=== PATIENT | female | born 1960 | race Caucasian/White ===

== ENCOUNTER → 2018-02-20 | Outpatient (CLI) | payer MEDICARE | END | disposition home or self-care (01) | LOC: PLD 12:44 → LAB SHORT 12:44 | DX: L57.0 Actinic keratosis (principal); L81.4 Other melanin hyperpigmentation | CPT/HCPCS: 88305 ==

== ENCOUNTER → 2019-04-22 | Outpatient (CLI) | payer MEDICARE | END | disposition home or self-care (01) | LOC: PLD 15:14 → LAB SHORT 15:14 | DX: D48.5 Neoplasm of uncertain behavior of skin (principal) | CPT/HCPCS: 88305 ==

== ENCOUNTER → 2023-01-12 | Outpatient (CLI) | payer MEDICARE ==
[~2023-01-12] MED LIST: DICL75ER PO; GABA800 PO; HYDSUL200; MOBIC15 MG PO; Methocarbamol500 MG PO; SUMA25 PO; TRAM50 PO
[2023-01-15 08:43] LABS: 6-ACETYLMORPHINE, URN, QUANT <10 ng/mL; CODEINE, URN, QUANT <20 ng/mL; HYDROCODONE, URN, QUANT 298 ng/mL; HYDROMORPHONE, URN, QUANT <20 ng/mL; MORPHINE, URN, QUANT <20 ng/mL; NORHYDROCODONE, URN, QUANT 844 ng/mL; NOROXYCODONE, URN, QUANT <20 ng/mL; NOROXYMORPHONE, URN, QUANT <20 ng/mL; OXYCODONE, URN, QUANT <20 ng/mL; OXYMORPHONE, URN, QUANT <20 ng/mL
== END | disposition home or self-care (01) ==
LOC: LAB 09:30 → LAB SHORT 09:30
PROVIDERS: Family Medicine
DX: S46.001S Unspecified injury of muscle(s) and tendon(s) of the rotator cuff of right shoulder, sequela (principal)
CPT/HCPCS: G0480

== ENCOUNTER 2023-03-13 06:22 | Day surgery (SDC) | payer MEDICARE ==
[~2023-03-13] VITALS: Ht 162.6 cm; Wt 85.5 kg
[~2023-03-13 06:22] MED LIST changes: +ALPR.5 PO; +BUPR150ER PO; +CALCIUM 600 WI1 EAC1 PO; +CELE200 PO; +FAMO40 PO; +MECL25 PO; +PREG75 PO; +Prozac20 MG PO
--- NOTE | 2023-03-13 07:17 | NUR ---
03/13/23 0717 Megan Ordaz PT COMFORTABLE AT THIS TIME. NO QUESTIONS OR CONCERNS AT THIS TIME. PARENTS IN ROOM WITH PT. CALL LIGHT WITHIN REACH. BED IN LOWEST POSITION
--- NOTE | 2023-03-13 08:22 | NUR ---
03/13/23 0822 Gregg Serna ROPIVACAINE 0.5% 20 MLS MIXED & VERIFIED W/ EPI 0.1 ML (1MG/ML), PER ORDER, TO MAKE ROPIVACAINE 0.5% 1:200,000 FOR INJECTION AT OPSITE BY DR OBRIEN. 10 MLS INJECTED.
[2023-03-13 10:40] VITALS: BP 96/60
== END 2023-03-13 12:25 | disposition home or self-care (01) ==
LOC: ORSCSDS 06:22
PROVIDERS: Orthopaedic Surgery
PROC: 0RRJ00Z Replacement of Right Shoulder Joint with Reverse Ball and Socket Synthetic Substitute, Open Approach (ICD-10-PCS; principal; 2023-03-13 07:30)
DX: M19.011 Primary osteoarthritis, right shoulder (principal); M32.9 Systemic lupus erythematosus, unspecified; I10 Essential (primary) hypertension; M79.7 Fibromyalgia; F41.9 Anxiety disorder, unspecified; F32.A Depression, unspecified; Z79.899 Other long term (current) drug therapy
CPT/HCPCS: 73030; A9270; C1713; C1776; J0171; J0696; J1100; J1885; J2250; J2405; J2704; J2795; J3010; J7120

== ENCOUNTER 2023-08-21 11:59 | Emergency (ER) | payer MEDICARE ==
[~2023-08-21] VITALS: Ht 162.6 cm; Wt 82.5 kg
[2023-08-21] MEDS ORDERED: CODITUSSIN AC473 M1 PO (14:28)
[2023-08-21] MEDS ORDERED: Prednisone20 MG PO (14:28)
[2023-08-21] MEDS ORDERED: Mucinex600 MG PO (14:28)
[2023-08-21 14:38] VITALS: BP 108/74
== END 2023-08-21 14:33 | disposition home or self-care (01) ==
LOC: ER 11:59
DX: R05.9 Cough, unspecified (principal); Z79.52 Long term (current) use of systemic steroids; Z79.899 Other long term (current) drug therapy; Z88.5 Allergy status to narcotic agent; Z88.8 Allergy status to other drugs, medicaments and biological substances
CPT/HCPCS: 71046; 99283-25